=== PATIENT | male | born 1960 | race Caucasian/White ===

== ENCOUNTER 2023-03-23 09:29 | Observation (INO) | payer OTHER ==
[~2023-03-23] VITALS: Ht 198.1 cm; Wt 108.9 kg
[2023-03-23 09:55] LABS: Base Excess Venous -2.9 mmol/L; Bicarbonate Venous 21.8 mmol/L (24.0-30.0); PCO2 Venous 45.9 mmHg (38-42); pH Blood Venous 7.31 (7.34-7.37)
[2023-03-23 09:58] LABS: BASOPHILS ABSOLUTE AUTO 0.04 K/mm3 (0.00-0.23); BASOPHILS PERCENT AUTO 0 % (0-2); EOSINOPHILS ABSOLUTE AUTO 0.28 K/mm3 (0.00-0.68); EOSINOPHILS PERCENT AUTO 2 % (0-6); Hematocrit 42.1 % (37.0-53.0); Hemoglobin 14.5 g/dL (13.5-17.5); IMMATURE GRAN ABSOLUTE AUTO 0.04 K/mm3 (0.00-0.10); IMMATURE GRAN PERCENT AUTO 0 % (0-1); LYMPHOCYTES ABSOLUTE AUTO 1.08 K/mm3 (0.84-5.20); LYMPHOCYTES PERCENT AUTO 6 % (21-46); MONOCYTES ABSOLUTE AUTO 0.62 K/mm3 (0.16-1.47); MONOCYTES PERCENT AUTO 4 % (4-13); Mean Corpuscular HGB Conc 34.4 g/dL (31.5-36.5); Mean Corpuscular Volume 87 fL (80-100); Mean Platelet Volume 9.9 fL (9.1-12.4); NEUTROPHILS ABSOLUTE AUTO 15.34 K/mm3 (1.96-9.15); NEUTROPHILS PERCENT AUTO 88 % (41-73); Platelet Count 253 K/mm3 (150-400); RDW Coefficient Variation 12.4 % (11.7-14.2); RDW Standard Deviation 39.3 fL (35.1-46.3); Red Blood Cell Count 4.84 M/mm3 (4.30-5.90)
[2023-03-23 10:22] LABS: Albumin/Globulin Ratio 1.1 (0.8-1.8); Bilirubin, Total 0.9 mg/dL (0.1-1.0); Bun/Creatinine Ratio 17.8 (12.0-20.0); Calcium, Blood 8.6 mg/dL (8.5-10.1); Creatinine, Blood 1.07 mg/dL (0.60-1.20); Globulin, Blood 3.8 g/dL (2.2-4.0); Potassium, Blood 3.5 mmol/L (3.5-5.5); Total Protein, Blood 7.8 g/dL (6.4-8.2)
--- NOTE | 2023-03-23 11:04 | NUR ---
Ethics consultation requested. Medical condition, social history, and clinical trajectory discussed with palliative care. 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 It is indicated that he will not benefit proportionately from aggressive or stabalizing interventions. A good payal effort has been made to locate and engage family members. Unfortuntely this exercise has proved to be fruitless. Per ORS 127.635, if the principal has been medically confirmed to be in one of the following conditions; life sustaining procedures may be withheld or withdrawn at the direction and under the supervision of the attending physican to allow for a dignified passing: (a) the principal is in a terminal state, (b) he is permanently unconscious, (c) he is in a condition in which the administration of aggressive or life sustaining interventions would be non-beneficial and the maintenance of such would cause permanent and severe pain, or, (d) the principal is in the advanced stage of a progressive illness that will be fatal, he is consistently and permanently unable to communicate by any means, to swallow food and water safely, to care for himself and to recognize family or other people, and it is clinically improbable that his condition will substantially improve. If the principal meets the above stipulated critera, please have two doctors provide written attestation in the electronic health record confirming this to be the case. Thank you for this consult. Jas Tran, PhD, DAVID in a terminal condition
--- NOTE | 2023-03-23 11:08 | NUR ---
Spiritual Care Support Pt. is in ED and is not responsive. This bobcat driver/labor attempted to call the Pts. elderly mother about the need to consider wihdrawing care. Saqib's phone would not take call, so a message is left in her voicemail. Prayed with Pt. Contacted Jas Tran for an ethics consult, and connected him with palliative pacre nurse. Will remain available to the pts. family and the ED staff.
[2023-03-23 12:15] VITALS: BP 111/78
--- NOTE | 2023-03-23 12:15 | NUR ---
Spiritual Care Support. EOL Decisions Pts. Mother and father arrived with Pts. dog. Family verbalized their goodbyes, and considered for a time have the Pt. be an organ donor. Facilitated a life review with mother. Pts. mother ultimatemately declined pursuing donor services. The family has chosen in advance [facility] in [place] for home service after the Pt. passes. Family verbalized gratitude to the hospital staff for their care of the Pt.
--- NOTE | 2023-03-23 12:45 | NUR ---
Called to ER for pt come in unresponsive vominting blood. CT scan noted. Several attemtpts to contact family. pt was shwoing s/s of demise. Ethic consult placed and two physician attestation and consult with ehtics. pt made DNR and we will not excalate case. pt has new dianosis of brain tumor and came home to see family before he passes. Symptom management started to prevent extrodinary suffering. pt having extenisve bloody secretions. Pt hooked to suction and NG. Will monitor closely for seizures. Mother came in later with family and his dog advised of prognosis and plan of care. Mother agreed and was amedable to care. they had a short visit and reminised plant clerk came to visit. they are going to leave to family reunion and celebrate his life and not stay and suffer watching him. Staff offered surogacy will stay with him. pt two rings and bracelet and wallet and belongins sent with family. pt not bale to be orgon donor.
--- NOTE | 2023-03-23 13:29 | NUR ---
Pt arrived to ICU at 1235, extubated to comfort care at 1248. NG tube placed d/t gastric emptying and frequent suction requirements. PRN medications given, see EMAR. Oral care/ face washing completed. Pt appears to be resting comfortably at this time. Will continue to monitor and provide comfort measures.
--- NOTE | 2023-03-23 13:54 | NUR ---
pt passed chaplian notified and pt family notified. God bless him!
--- NOTE | 2023-03-23 15:17 | NUR ---
"Spiritual Care Visit| EOL Bixby Prayed over the Pt. Baylee from Palliative Care contact Pts. family."
--- NOTE | 2023-03-23 17:29 | NUR ---
PT TOD 1348. Palliative care RN contacted to pickup pt quilt and update family.
== END 2023-03-23 13:45 ==
LOC: ER 09:29 → EDBD 09:29 → ICUE 09:30
PROVIDERS: Emergency Medicine; ADMIT Internal Medicine
DX: I61.9 Nontraumatic intracerebral hemorrhage, unspecified (principal); J69.0 Pneumonitis due to inhalation of food and vomit; C71.9 Malignant neoplasm of brain, unspecified; R41.82 Altered mental status, unspecified; J96.02 Acute respiratory failure with hypercapnia; J96.01 Acute respiratory failure with hypoxia
CPT/HCPCS: 70450; 71045; 80053; 82803; 85025; 93005; 93010; 94002; 96365; 96375; 96376; 99285-25; A9270; C9113; G0378; J0696; J1170; J2060; J2270; J2405